=== PATIENT | female | born 1985 | race African-American/Black ===

== ENCOUNTER 2018-01-27 04:05 | Emergency (ER) | payer BC, MEDICAID ==
[~2018-01-27] VITALS: Ht 177.8 cm; Wt 127.0 kg
[2018-01-27] MEDS ORDERED: KETOROLAC 60MG/2ML VIAL IM ONE (08:15)
[2018-01-27 10:00] VITALS: BP 157/94
[2018-01-27] MEDS ORDERED: ACETAMINOPHEN 325MG TABLET PO ONE (10:15)
== END 2018-01-27 10:30 | disposition home or self-care (01) ==
LOC: ER 05:08
DX: S43.401A Unspecified sprain of right shoulder joint, initial encounter (principal); M75.31 Calcific tendinitis of right shoulder; Z98.51 Tubal ligation status; X58.XXXA Exposure to other specified factors, initial encounter; Y93.89 Activity, other specified; Y92.018 Other place in single-family (private) house as the place of occurrence of the external cause
CPT/HCPCS: 73030; 81025; 96372; 99284; J1885; Z7610